=== PATIENT | female | born 1960 | race Caucasian/White ===

== ENCOUNTER 2018-01-31 18:40 | Emergency (ER) | payer OTHER ==
[2018-01-31 19:04] VITALS: RESP 18; TEMP 98.6
[2018-01-31] MEDS ORDERED: LIDOCAINE BUFFERED 1% 50 ML SOL SC ONE (19:10)
[2018-01-31] MEDS ORDERED: LIDOCAINE HCL 1% MPF 30 SOL ONE (19:11)
[2018-01-31] MEDS ORDERED: BACITRACIN 500 U/GM OIN TOP ONE ×2 (19:25→19:27)
[2018-01-31 20:25] VITALS: BP 140/79; PULSE 56; O2SAT 99
== END 2018-01-31 19:52 | disposition home or self-care (01) | DRG 605 ==
LOC: SUPCPDRO 18:40 → ED 18:40
DX: S61.211A Laceration without foreign body of left index finger without damage to nail, initial encounter (principal)
CPT/HCPCS: 12001; 99284; A9270-GY; J2001